=== PATIENT | male | born 1990 | race Caucasian/White ===

== ENCOUNTER 2017-01-08 12:57 | Emergency (ER) | payer MEDICAID ==
[~2017-01-08] VITALS: Ht 188 cm; Wt 101.2 kg
[2017-01-08 14:56] LABS: PLATELET COUNT 193 x10^3mcL (130-400)
[2017-01-08 15:00] LABS: BASOPHIL % 0 % (0-2)
[2017-01-08 15:10] LABS: CALCIUM 8.8 mg/dL (8.5-10.1); CARBON DIOXIDE 28.9 mmol/L (21-32); CREATININE SERUM 1.5 mg/dL (0.7-1.3); POTASSIUM SERUM 4.6 mmol/L (3.5-5.1)
[2017-01-08 15:14] LABS: ALBUMIN 4.1 g/dL (3.4-5.0); BILIRUBIN TOTAL 1.6 mg/dL (0.20-1.00); TOTAL PROTEIN, SERUM 7.4 g/dL (6.4-8.2)
[2017-01-08 17:10] VITALS: BP 114/56
== END 2017-01-08 17:10 | disposition home or self-care (01) ==
LOC: ED 12:57
PROVIDERS: Emergency Medicine
DX: E86.0 Dehydration (principal); R10.84 Generalized abdominal pain
CPT/HCPCS: 83880; 87046; 87046-59; J1885; J2405; J7030

== ENCOUNTER 2018-03-25 04:57 | Emergency (ER) | payer OTHER ==
[~2018-03-25] VITALS: Ht 188 cm; Wt 105.7 kg
[2018-03-25 05:04] VITALS: Ht 188 cm; Wt 105.7 kg
[2018-03-25 06:03] VITALS: BP 130/75
== END 2018-03-25 06:03 | disposition home or self-care (01) ==
LOC: ED 04:57
DX: J06.9 Acute upper respiratory infection, unspecified (principal); R06.6 Hiccough
CPT/HCPCS: J3230; Q0092

== ENCOUNTER 2018-04-15 19:42 | Emergency (ER) | payer OTHER ==
[~2018-04-15] VITALS: Ht 188 cm; Wt 108.0 kg
[2018-04-15 19:55] VITALS: Ht 188 cm; Wt 108.0 kg
[2018-04-15 21:44] VITALS: BP 176/94
== END 2018-04-15 21:44 | disposition home or self-care (01) ==
LOC: ED 19:42
DX: T78.40XA Allergy, unspecified, initial encounter (principal); R03.0 Elevated blood-pressure reading, without diagnosis of hypertension; X58.XXXA Exposure to other specified factors, initial encounter
CPT/HCPCS: J1200; J2930; J3490